=== PATIENT | female | born 1990 | race Hispanic/Latino ===

== ENCOUNTER 2017-05-04 12:31 | Emergency (ER) | payer OTHER, BC ==
[2017-05-04 12:37] VITALS: BP 127/54; PULSE 88; RESP 16; TEMP 98; O2SAT 100
[2017-05-04] MEDS ORDERED: Tetracaine 0.5% Ophth 2 ML BOTTLE OD ONE (12:44)
--- NOTE | 2017-05-04 14:03 | ED PDOC ---
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 When the umbilical cord was cut, cord blood spattered on to the right forearm, right eye, and into her mouth. She states that the source patients HIV status was negative. Patient is refusing post-exposure prophylactic medications. Currently complaining of mild irritation to the right eye. Denies visual changes, headache , FB sensation. PMD: Dr. Camacho Past Medical History Reviewed: Historical Data, Nursing Documentation, Vital Signs Vital Signs: Last Vital Signs Temp 98.0 F 05/04/17 12:34 Pulse 88 05/04/17 12:34 Resp 16 05/04/17 12:34 BP 127/54 L 05/04/17 12:34 Pulse Ox 100 05/04/17 14:26 - Medical History PMH: Migraine - Family History Family History: States: No Known Family Hx - Home Medications Home Medications: Ambulatory Orders Medication Instructions Recorded Acetaminophen/Butalbital/Caf 1 tab PO Q4 #10 tab 10/22/14 [Fioricet 325 mg-50 mg-40 mg] Metoclopramide Hydrochloride 10 mg PO Q4 PRN #10 tab 10/22/14 [Reglan] - Allergies Allergies/Adverse Reactions: Allergies Allergy/AdvReac Type Severity Reaction Status Date / Time cefaclor [From Ceclor] Allergy ANAPHYLAXIS Verified 05/04/17 12:34 Review of Systems ROS Statement: Except As Marked, All Systems Reviewed And Found Negative Skin: Positive for: Other (Bodily fluid exposure) Physical Exam - Reviewed Nursing Documentation Reviewed: Yes Vital Signs Reviewed: Yes - Physical Exam Appears: Positive for: Well, Non-toxic, No Acute Distress Head Exam: Positive for: ATRAUMATIC, NORMAL INSPECTION, NORMOCEPHALIC Skin: Positive for: Normal Color, Warm, Dry. Negative for: Rash Eye Exam: Positive for: EOMI, Conjunctival injection (minimal). Negative for: Periorbital swelling, Periorbital tenderness ENT: Positive for: Normal ENT Inspection Extremity: Positive for: Normal ROM, Other (moving all extremities). Negative for: Deformity Neurologic/Psych: Positive for: Alert, Oriented - ECG O2 Sat by Pulse Oximetry: 100 (RA) Pulse Ox Interpretation: Normal Medical Decision Making Medical Decision Making: Time: 12:49 Initial Plan: --Patient offered post exposure prophylaxis medications but refused. --Ordered labs as per protocol --Patient will follow up with [facility] per protocol Scribe Attestation: Documented by Gale Brantley, acting as a scribe for Piyush Haider PA-C Provider Scribe Attestation: All medical record entries made by the Scribe were at my direction and personally dictated by me. I have reviewed the chart and agree that the record accurately reflects my personal performance of the history, physical exam, medical decision making, and the department course for this patient. I have also personally directed, reviewed, and agree with the discharge instructions and disposition. Disposition - Clinical Impression Clinical Impression: Exposure to blood - Patient ED Disposition Is Patient to be Admitted: No Counseled Patient/Family Regarding: Studies Performed, Diagnosis, Need For Followup - Disposition Disposition: Routine/Home Disposition Time: 14:20 Condition: STABLE Additional Instructions: FOLLOW UP WITH [facility] FOR LAB RESULTS. Instructions: Body Substance Exposure (ED) Forms: [employer] ([employer]) Print Language: FILIPINO
== END 2017-05-04 14:10 | disposition home or self-care (01) ==
LOC: H.ER 12:31
DX: Z77.21 Contact with and (suspected) exposure to potentially hazardous body fluids (principal); Y99.0 Civilian activity done for income or pay

== ENCOUNTER 2017-07-13 17:52 | Emergency (ER) | payer OTHER, BC ==
[2017-07-13 18:00] VITALS: BP 130/94; PULSE 82; RESP 18; TEMP 98; O2SAT 100
--- NOTE | 2017-07-13 18:12 | ED PDOC ---
HPI: Back Time Seen by Provider: 07/13/17 17:55 Chief Complaint (Nursing): Back Pain Chief Complaint (Provider): Back Pain History Per: Patient History/Exam Limitations: no limitations Onset/Duration Of Symptoms: Mins (x15-20) Current Symptoms Are (Timing): Still Present Additional Complaint(s): 26 year old female, an [employer] employee in [employer]OR [employer] department, who presents to the emergency department with a complaint of lower, right-sided back "tightness" radiating to upper right buttock status post catching a "300lb father who fainted" while preparing epidural procedure for his 15-20 minutes prior to arrival. Patient denied taking any pain medication for relief and able to ambulate to ED. PMD: none provided Past Medical History Reviewed: Historical Data, Nursing Documentation, Vital Signs Vital Signs: Last Vital Signs Temp 98 F 07/13/17 17:57 Pulse 82 07/13/17 17:57 Resp 18 07/13/17 17:57 BP 130/94 H 07/13/17 17:57 Pulse Ox 100 07/13/17 17:57 - Medical History PMH: Migraine - Surgical History Surgical History: No Surg Hx - Family History Family History: States: Unknown Family Hx - Social History Current smoker - smoking cessation education provided: No Alcohol: None Drugs: Denies - Home Medications Home Medications: Ambulatory Orders Medication Instructions Recorded Acetaminophen/Butalbital/Caf 1 tab PO Q4 #10 tab 10/22/14 [Fioricet 325 mg-50 mg-40 mg] Metoclopramide Hydrochloride 10 mg PO Q4 PRN #10 tab 10/22/14 [Reglan] Cyclobenzaprine [Cyclobenzaprine 10 mg PO TID #20 tab 07/13/17 HCl] Ibuprofen [Motrin] 600 mg PO Q6 #20 tab 07/13/17 - Allergies Allergies/Adverse Reactions: Allergies Allergy/AdvReac Type Severity Reaction Status Date / Time cefaclor [From [facility]] Allergy ANAPHYLAXIS Verified 07/13/17 17:56 Review of Systems ROS Statement: Except As Marked, All Systems Reviewed And Found Negative Musculoskeletal: Positive for: Back Pain (right-sided), Leg Pain (upper right thigh) Physical Exam - Reviewed Nursing Documentation Reviewed: Yes Vital Signs Reviewed: Yes - Physical Exam Appears: Positive for: Well, Non-toxic, No Acute Distress Head Exam: Positive for: ATRAUMATIC, NORMAL INSPECTION, NORMOCEPHALIC Cardiovascular/Chest: Positive for: Regular Rate, Rhythm, Chest Non Tender Respiratory: Positive for: Normal Breath Sounds. Negative for: Decreased Breath Sounds, Respiratory Distress Back: Positive for: Vertebral Tenderness (paraspinal). Negative for: Normal Inspection, L CVA Tenderness, R CVA Tenderness Extremity: Positive for: Normal ROM. Negative for: Tenderness Neurologic/Psych: Positive for: Alert (x3), Oriented - ECG O2 Sat by Pulse Oximetry: 100 (RA) Pulse Ox Interpretation: Normal Medical Decision Making Medical Decision Making: Initial Impression: Back pain Initial Plan: * Xray lumbar spine * XR: NAD, as read by GURPREET * Pt declined analgesics at this time Scribe Attestation: Documented by Lety Neri, acting as a scribe for Anika Becerra. Provider Scribe Attestation: All medical record entries made by the Scribe were at my direction and personally dictated by me. I have reviewed the chart and agree that the record accurately reflects my personal performance of the history, physical exam, medical decision making, and the department course for this patient. I have also personally directed, reviewed, and agree with the discharge instructions and disposition. Disposition - Clinical Impression Clinical Impression: Low back strain - Patient ED Disposition Is Patient to be Admitted: No - Disposition Disposition: Routine/Home Disposition Time: 19:06 Condition: STABLE Prescriptions: Cyclobenzaprine [Cyclobenzaprine HCl] 10 mg PO TID #20 tab Ibuprofen [Motrin] 600 mg PO Q6 #20 tab Instructions: Acute Low Back Pain (ED) Forms: [employer] (Guamanian), [facility] [facility] [facility] ED School/Work Excuse - POA Present On Arrival: None
--- NOTE | 2017-07-14 09:43 | RAD ---
PROCEDURE: Radiographs of the Lumbar Spine. HISTORY: pain s/p heavy lifting COMPARISON: No prior. FINDINGS: BONES: Five views of the lumbar spine were performed. Pedicles are intact. No sacroiliac joint widening is seen. No malalignment is noted. No compression fracture is seen. No lytic process is noted. Posterior elements are intact. There is minor disc space narrowing seen at L5-S1. There is also some mild degenerative facet changes seen at L5-S1, greater on the right. Sacral foramina are unremarkable. No presacral masses are identified. Lower thoracic spine is within normal limits. DISC SPACES: Mild disc space narrowing at L5-S1. OTHER FINDINGS: None. IMPRESSION: No evidence of fracture or malalignment. See above.
== END 2017-07-13 19:20 | disposition home or self-care (01) ==
LOC: H.ER 17:52
DX: S39.012A Strain of muscle, fascia and tendon of lower back, initial encounter (principal); X50.9XXA Other and unspecified overexertion or strenuous movements or postures, initial encounter; Y99.0 Civilian activity done for income or pay